=== PATIENT | male | born 1985 | race Caucasian/White ===

== ENCOUNTER 2024-06-02 14:41 | Emergency (ER) | payer BC ==
[2024-06-02] MEDS ORDERED: ONDANSETRON 4 MG/2 ML VIAL ONE (15:49)
[2024-06-02] MEDS ORDERED: KETOROLAC 30 MG/ML INJ ONE (15:49)
[2024-06-02] MEDS ORDERED: MORPHINE 4 MG/ML SYR ONE (15:50)
[2024-06-02] MEDS ORDERED: NA CHLORIDE 0.9% 1,000 ML ONE (15:50)
[2024-06-02] MEDS ORDERED: FAMOTIDINE 20 MG/2 ML VIAL IV ONE (15:50)
[2024-06-02 16:00] LABS: Absolute Basophils 0.1 K/uL (0-0.5); Absolute Eosinophils 0.2 K/uL (0-0.5); Absolute Lymphocytes (CBC) 2.5 K/uL (0.7-4.9); Absolute Monocytes 0.6 K/uL (0.1-1.3); Absolute Neutrophil 6.5 K/uL (1.8-8.0); Basophils % 1.2 % (0-1.3); Eosinophils % 1.6 % (0-4.4); Hematocrit 42.1 % (39.6-49.0); Hemoglobin 14.3 g/dL (13.6-17.9); Lymphocytes % 25.4 % (15.3-44.8); MCH 31.6 pg (27.0-35.0); Monocytes % 5.9 % (3.3-12.3); Neutrophils % 65.9 % (41.7-73.7); Platelets 228 thou/uL (152-406); RBC Red Blood Cell Count 4.52 M/uL (4.33-5.43); Red Cell Distribution Width 13.7 % (12.1-15.2)
[2024-06-02 16:01] LABS: Specific Gravity 1.023 (1.005-1.030); Urine Bilirubin NEGATIVE (Negative); Urine Blood Negative (Negative); Urine Clarity Clear (Clear); Urine Color Yellow (Yellow); Urine Glucose NEGATIVE (Negative); Urine Ketones NEGATIVE (Negative); Urine Microscopic Reflex YN NO UMIC; Urine Nitrite NEGATIVE (Negative); Urine Protein NEGATIVE (Negative); Urine Urobilinogen Normal (Normal); Urine pH 5.5 (5.0-7.0)
[2024-06-02 16:18] LABS: Albumin 3.9 g/dL (3.4-5.0); Anion Gap 10.5 mEq/L (5.0-15.0); Bilirubin Total 0.4 mg/dL (0.2-1.0); Globulin 4.1 g/dL (2.3-3.5); Potassium 3.5 mEq/L (3.5-5.1)
--- NOTE | 2024-06-02 17:27 | RAD REPORT ---
EXAMINATION: CTA CHEST PE CLINICAL INDICATION: Chest pain TECHNIQUE: 100 cc 370 Isovue administered intravenously. This examination was performed according to an angiographic protocol with 3D post-processing. This involves 3D reconstructions, MIPs, volume rendered images and/or shaded surface rendering. One or more of the following dose reduction techniqu es were used: Automated exposure control, adjustment of the mA and/or kV according to patient size, and/or iterative reconstruction. Unless otherwise specified, incidental findings do not require dedic ated imaging follow-up. [id number]. COMPARISON: No prior exam. FINDINGS: A pulmonary embolus is not seen. An aortic aneurysm not noted. No pleural effusion. No pericardial effusion. Lungs are clear. IMPRESSION: No evidence of a pulmonary embolism
--- NOTE | 2024-06-02 18:03 | RAD REPORT ---
EXAMINATION: CT ABDOMEN AND PELVIS WITH CONTRAST CLINICAL INDICATION: Abdominal pain TECHNIQUE: CT abdomen and pelvis was performed, after the administration of 100 cc Isovue-300.. Sagit blaine and coronal reconstructions were obtained. One or more of the following dose reduction techniques were used: Automated exposure control, adjustment of the mA and kV according to patient si ze, and iterative reconstruction. Unless otherwise specified, incidental findings do not require dedicated imaging follow-up. [id number]. Oral contrast was not given which limits evaluation of bowel and appendix. COMPARISON: .None FINDINGS: Mild fatty liver. The spleen, pancreas, adrenals and kidneys appear unremarkable No evidence of diverticulitis. Normal appendix Xoewl-[id number] bilateral hernias containing fat : IMPRESSION: Sisxy-ml-[id number] bilateral hernias
--- NOTE | 2024-06-02 19:15 | EDPHYS ---
Physician Documentation [facility] Name: Kelton Castanon Age: 38 yrs Sex: Male : 1985 Arrival Date: 06/02/2024 Time: 14:41 Bed 6 Private MD: ED Physician Reza De La Paz HPI: 06/02 16:14 This 38 yrs old Male presents to ER via Ambulatory with complaints of Flank ilia Pain. 16:14 The patient complains of pain in the right subscapular area and right mid back. The ilia pain radiates to the right subscapular area and right mid back. Onset: The symptoms/episode began/occurred 3 day(s) ago. Modifying factors: The symptoms are alleviated by nothing. the symptoms are aggravated by movement. Associated signs and symptoms: The patient has no apparent associated signs or symptoms. Severity of pain: At its worst the pain was moderate severe in the emergency department the pain has improved moderately. The patient has not experienced similar symptoms in the past. Historical: - Allergies: 15:11 No Known Allergies; hb - PMHx: 15:11 Hypertension; hb - PSHx: 15:11 Hernia Repair; hb - Immunization history:: Adult Immunizations up to date. - Infectious Disease History:: Denies. - Social history:: Smoking status: Patient reports the use of cigarette tobacco products, smokes one pack cigarettes per day. ROS: 16:21 Constitutional: Negative for fever, chills, and weight loss, Eyes: Negative for injury, ilia pain, redness, and discharge, ENT: Negative for injury, pain, and discharge, Neck: Negative for injury, pain, and swelling, Cardiovascular: Negative for chest pain, palpitations, and edema, Respiratory: Negative for shortness of breath, cough, wheezing, and pleuritic chest pain, Abdomen/GI: Negative for abdominal pain, nausea, vomiting, diarrhea, and constipation, : Negative for injury, bleeding, discharge, and swelling, MS/Extremity: Negative for injury and deformity, Skin: Negative for injury, rash, and discoloration, Neuro: Negative for headache, weakness, numbness, tingling, and seizure, Psych: Negative for depression, anxiety, suicide ideation, homicidal ideation, and hallucinations, Allergy/Immunology: Negative for hives, rash, and allergies, Endocrine: Negative for neck swelling, polydipsia, polyuria, polyphagia, and marked weight changes, Hematologic/Lymphatic: Negative for swollen nodes, abnormal bleeding, and unusual bruising, 16:21 Back: Positive for pain with movement, flank pain, on the left, 19:12 Cardiovascular: Negative for chest pain, ilia 19:12 Respiratory: Negative for shortness of breath, Exam: 16:21 Constitutional: This is a well developed, well nourished patient who is awake, alert, ilia and in no acute distress. Head/Face: Normocephalic, atraumatic. Eyes: Pupils equal round and reactive to light, extra-ocular motions intact. Lids and lashes normal. Conjunctiva and sclera are non-icteric and not injected. Cornea within normal limits. Periorbital areas with no swelling, redness, or edema. ENT: Nares patent. No nasal discharge, no septal abnormalities noted. Tympanic membranes are normal and external auditory canals are clear. Oropharynx with no redness, swelling, or masses, exudates, or evidence of obstruction, uvula midline. Mucous membranes moist. Neck: Trachea midline, no thyromegaly or masses palpated, and no cervical lymphadenopathy. Supple, full range of motion without nuchal rigidity, or vertebral point tenderness. No Meningismus. Chest/axilla: Normal chest wall appearance and motion. Nontender with no deformity. No lesions are appreciated. Cardiovascular: Regular rate and rhythm with a normal S1 and S2. No gallops, murmurs, or rubs. Normal PMI, no JVD. No pulse deficits. Respiratory: Lungs have equal breath sounds bilaterally, clear to auscultation and percussion. No rales, rhonchi or wheezes noted. No increased work of breathing, no retractions or nasal flaring. Abdomen/GI: Soft, non-tender, with normal bowel sounds. No distension or tympany. No guarding or rebound. No evidence of tenderness throughout. Back: No spinal tenderness. No costovertebral tenderness. Full range of motion. Male : Normal genitalia with no discharge or lesions. Skin: Warm, dry with normal turgor. Normal color with no rashes, no lesions, and no evidence of cellulitis. MS/ Extremity: Pulses equal, no cyanosis. Neurovascular intact. Full, normal range of motion., bilateral aka Neuro: Awake and alert, GCS 15, oriented to person, place, time, and situation. Cranial nerves II-XII grossly intact. Motor strength 5/5 in all extremities. Sensory grossly intact. Cerebellar exam normal. Normal gait. Psych: Awake, alert, with orientation to person, place and time. Behavior, mood, and affect are within normal limits. 16:21 ECG was reviewed by the Attending Physician. 19:12 Musculoskeletal/extremity: DVT Exam: No signs of deep vein thrombosis. no pain, no ilia swelling, no tenderness, negative Homans' sign noted on exam, no appreciated bluish discoloration, no erythema, no increased warmth, 19:12 Skin: no rash present. 19:17 ECG was reviewed by the Attending Physician. [facility] Vital Signs: 15:09 BP 162 / 105; Pulse 118; Resp 20; Temp 98.9(O); Pulse Ox 100% on R/A; Weight 127.01 kg; hb Height 5 ft. 9 in. ; Pain 7/10; 17:51 BP 129 / 73; Pulse 96; Resp 15; Pulse Ox 99% ; ko1 19:00 BP 123 / 79; Pulse 103; Resp 20; Pulse Ox 96% on R/A; al5 19:15 BP 133 / 88; Pulse 103; Resp 21; Pulse Ox 95% on R/A; al5 15:09 Body Mass Index 41.35 (127.01 kg, 175.26 cm) hb 15:09 Pain Scale: Adult hb MDM: 14:52 Medical Screening Exam initiated ilia 16:22 Antibiotic administration: Not indicated. Differential diagnosis: nephrolithiasis, ilia pyelonephritis, UTI, diverticulitis, pancreatitis, pneumonia, Pneumothorax pulmonary edema, Pulmonary Embolism reactive airway disease, Unstable Angina. Immunization status:. Data reviewed: vital signs, nurses notes, lab test result(s), EKG, radiologic studies, CT scan, plain films. Consideration of Admission/Observation Escalation of care including admission/observation considered. I considered the following discharge prescriptions or medication management in the emergency department Medications were administered in the Emergency Department. See MAR. Independent interpretation of the following test(s) in the Emergency Department EKG: See my EKG interpretation above. Test considered but Not performed: MRI: NO THORACIC MRI. Counseling: I had a detailed discussion with the patient and/or guardian regarding the historical points, exam findings, and any diagnostic results supporting the discharge/admit diagnosis, lab results, radiology results, the need for outpatient follow up, for definitive care, 06/02 14:54 Order name: CBC with Diff; Complete Time: 16:14 [facility] 06/02 14:54 Order name: CMP; Complete Time: 16:39 [facility] 06/02 14:54 Order name: Lipase; Complete Time: 16:39 [facility] 06/02 14:54 Order name: Urinalysis w/ reflexes; Complete Time: 16:14 [facility] 06/02 18:18 Order name: Troponin High Sensitivity; Complete Time: 19:11 [facility] 06/02 14:54 Order name: CT Abd/Pelvis - IV Contrast Only; Complete Time: 18:16 [facility] 06/02 15:49 Order name: CT Chest For PE Angio; Complete Time: 17:54 [facility] 06/02 16:14 Order name: INCENTIVE SPIROMETRY [facility] 06/02 18:18 Order name: INCENTIVE SPIROMETRY [facility] 06/02 14:54 Order name: IV Saline Lock; Complete Time: 15:53 [facility] 06/02 14:54 Order name: Labs collected and sent; Complete Time: 15:53 [facility] 06/02 18:17 Order name: EKG - Nurse/Tech; Complete Time: 18:55 [facility] EC:17 Rate is 73 beats/min. Rhythm is regular. QRS [place] is Normal. IA interval is normal. QRS ilia interval is normal. QT interval is normal. No Q waves. T waves are Normal. No ST changes noted. Clinical impression: NSR w/ Non-specific ST/T Changes and No evidence of ischemia. Interpreted by me. Reviewed by me. Administered Medications: 16:00 Drug: Famotidine IVP 20 mg IVP once; dilute with 10 mL 0.9% NaCl; give over 2 minutes kb3 Route: IVP; Site: left antecubital; 16:33 Follow up: Response: No adverse reaction; Pain is decreased kb3 16:00 Drug: Ondansetron IVP 4 mg IVP once; over 2 minutes Route: IVP; Site: left antecubital; kb3 16:33 Follow up: Response: No adverse reaction kb3 16:00 Drug: NS 0.9% IV 1000 ml IV at 1 bolus Per protocol; to be given as a bolus over 60 kb3 minutes Route: IV; Rate: 1 bolus; Site: left antecubital; 16:33 Follow up: Response: No adverse reaction; IV Status: Completed infusion; IV Intake: kb3 1000ml 16:34 Follow up: Response: No adverse reaction; Pain is decreased; IV Status: Completed kb3 infusion; IV Intake: 10ml 16:01 Drug: TORadol - Ketorolac IVP 15 mg IVP once Route: IVP; Site: left antecubital; kb3 16:33 Follow up: Response: No adverse reaction; Pain is decreased kb3 16:01 Drug: morphine IVP or IV 4 mg IVP once over 4 mins Route: IVP; Infused Over: 4 mins; kb3 Site: left antecubital; 16:16 Follow up: Response: No adverse reaction ko1 Disposition Summary: 06/02/24 19:14 Discharge Ordered Notes: Location: Home ilia Problem: new ilia Symptoms: have improved ilia Condition: Stable ilia Diagnosis - Strain of muscle and tendon of back wall of thorax ilia - Strain of muscle and tendon of front wall of thorax ilia - Bilateral inguinal hernia, without obstruction or gangrene, not specified as ilia recurrent - Hyperglycemia, unspecified ilia - Obesity, unspecified ilia - Unspecified symptoms and signs involving the musculoskeletal system ilia Followup: ilia - With: Private Physician - When: 2 - 3 days - Reason: Recheck today's complaints, Continuance of care, Re-evaluation by your physician Followup: ilia - With: Bharath Arboleda DO - When: 2 - 3 days - Reason: Recheck today's complaints, Re-evaluation by your physician Followup: ilia - With: Willy Paz MD - When: 2 - 3 days - Reason: Recheck today's complaints, Re-evaluation by your physician Discharge Instructions: - Discharge Summary Sheet ilia - Hernia, Adult ilia - Hyperglycemia ilia - Musculoskeletal Pain ilia - Obesity, Adult ilia - Inguinal Hernia, Adult, [id number] ilia - How to Use an Incentive Spirometer ilia Forms: - Medication Reconciliation Form ilia - Antibiotic Education ilia - Prescription Opioid Use ilia - Patient Portal Instructions [facility] - Leadership Thank You Letter [facility] Prescriptions: - Diclofenac Sodium 75 mg Oral Tablet Sustained Release - take 1 tablet ORAL route 2 times per day; 30 tablet; Refills: 0, Product ilia Selection Permitted - methocarbamol 750 mg Oral tablet - take 1 tablet ORAL route 4 times per day; 28 tablet; Refills: 0, Product ilia Selection Permitted Signatures: Dispatcher [employer] EDReza Carter MD MD cha Baxter, Heather, RN RN hb Yessy Cardoza RN RN kb3 Sabina Barnhart RN ko1
--- NOTE | 2024-06-02 19:15 | ER ---
Nurse's Notes [facility] Name: Kelton Castanon Age: 38 yrs Sex: Male : 1985 Arrival Date: 06/02/2024 Time: 14:41 Bed 6 Private MD: Diagnosis: Strain of muscle and tendon of back wall of thorax;Strain of muscle and tendon of front wall of thorax;Bilateral inguinal hernia, without obstruction or gangrene, not specified as recurrent;Hyperglycemia, unspecified;Obesity, unspecified;Unspecified symptoms and signs involving the musculoskeletal system Presentation: 06/02 15:09 Chief complaint: Left mid back pain that radiates to left flank x 2 weeks, coughed and hb felt a pop in the left flank and now pain is unbeatable. Recently recovered from the flu. Coronavirus screen: At this time, the client does not indicate any symptoms associated with coronavirus-19. Ebola Screen: No symptoms or risks identified at this time. Initial Sepsis Screen: Does the patient meet any 2 criteria? No. Patient's initial sepsis screen is negative. Does the patient have a suspected source of infection? No. Patient's initial sepsis screen is negative. Risk Assessment: Do you want to hurt yourself or someone else? Patient reports no desire to harm self or others. Onset of symptoms was May 19, 2024. 15:09 Method Of Arrival: Ambulatory hb 15:09 Acuity: PEPE 3 hb Historical: - Allergies: 15:11 No Known Allergies; hb - PMHx: 15:11 Hypertension; hb - PSHx: 15:11 Hernia Repair; hb - Immunization history:: Adult Immunizations up to date. - Infectious Disease History:: Denies. - Social history:: Smoking status: Patient reports the use of cigarette tobacco products, smokes one pack cigarettes per day. Screenin:30 [facility] ED Fall Risk Assessment (Adult) History of falling in the last 3 months, kb3 including since admission No falls in past 3 months (0 pts) Confusion or Disorientation No (0 pts) Intoxicated or Sedated No (0 pts) Impaired Gait No (0 pts) Mobility Assist Device Used No (0 pt) Altered Elimination No (0 pt) Score/Fall Risk Level 0 - 2 = Low Risk Oriented to surroundings, Maintained a safe environment. Abuse screen: Denies threats or abuse. Denies injuries from another. Nutritional screening: No deficits noted. Tuberculosis screening: No symptoms or risk factors identified. Assessment: 15:30 General: Appears uncomfortable, Behavior is calm, cooperative. Pain: Complains of pain kb3 in left subscapular area and left mid back Pain radiates to left low back Pain currently is 7 out of 10 on a pain scale. Vital Signs: 15:09 BP 162 / 105; Pulse 118; Resp 20; Temp 98.9(O); Pulse Ox 100% on R/A; Weight 127.01 kg; hb Height 5 ft. 9 in. ; Pain 7/10; 17:51 BP 129 / 73; Pulse 96; Resp 15; Pulse Ox 99% ; ko1 19:00 BP 123 / 79; Pulse 103; Resp 20; Pulse Ox 96% on R/A; al5 19:15 BP 133 / 88; Pulse 103; Resp 21; Pulse Ox 95% on R/A; al5 15:09 Body Mass Index 41.35 (127.01 kg, 175.26 cm) hb 15:09 Pain Scale: Adult hb ED Course: 14:42 Patient arrived in ED. im 14:52 Reza De La Paz MD is Attending Physician. ilia 15:11 Triage completed. hb 15:12 Arm band placed on. hb 15:19 Munir Rizvi, RN is Primary Nurse. bp 15:30 Patient has correct armband on for positive identification. Provided Education on: Plan kb3 of care. 15:30 No provider procedures requiring assistance completed. kb3 15:48 Initial lab(s) drawn, by me, sent to lab. Urine collected: clean catch specimen, clear. ty Inserted saline lock: 20 gauge in left antecubital area, using aseptic technique. Blood collected. Flushed with 10 mL NS. 15:53 CBC with Diff Sent. ty 15:53 CMP Sent. ty 15:53 Lipase Sent. ty 15:53 Urinalysis w/ reflexes Sent. ty 17:07 CT Abd/Pelvis - IV Contrast Only In Process Unspecified. EDMS 17:07 CT Chest For PE Angio In Process Unspecified. EDMS 18:21 INCENTIVE SPIROMETRY Sent. ko1 18:21 INCENTIVE SPIROMETRY Sent. ko1 18:32 Troponin High Sensitivity Sent. ko1 18:33 Repeat lab(s) drawn. by me, sent to lab. Incentive spirometer education provided by an ko1 Emergency Department nursing staff member. 19:14 Bharath Arboleda DO is Referral Physician. ilia 19:16 Willy Paz MD is Referral Physician. ilia 19:32 IV discontinued, intact, bleeding controlled, No redness/swelling at site. Pressure al5 dressing applied. Administered Medications: 16:00 Drug: Famotidine IVP 20 mg IVP once; dilute with 10 mL 0.9% NaCl; give over 2 minutes kb3 Route: IVP; Site: left antecubital; 16:33 Follow up: Response: No adverse reaction; Pain is decreased kb3 16:00 Drug: Ondansetron IVP 4 mg IVP once; over 2 minutes Route: IVP; Site: left antecubital; kb3 16:33 Follow up: Response: No adverse reaction kb3 16:00 Drug: NS 0.9% IV 1000 ml IV at 1 bolus Per protocol; to be given as a bolus over 60 kb3 minutes Route: IV; Rate: 1 bolus; Site: left antecubital; 16:33 Follow up: Response: No adverse reaction; IV Status: Completed infusion; IV Intake: kb3 1000ml 16:34 Follow up: Response: No adverse reaction; Pain is decreased; IV Status: Completed kb3 infusion; IV Intake: 10ml 16:01 Drug: TORadol - Ketorolac IVP 15 mg IVP once Route: IVP; Site: left antecubital; kb3 16:33 Follow up: Response: No adverse reaction; Pain is decreased kb3 16:01 Drug: morphine IVP or IV 4 mg IVP once over 4 mins Route: IVP; Infused Over: 4 mins; kb3 Site: left antecubital; 16:16 Follow up: Response: No adverse reaction [facility] Medication: 15:30 VIS not applicable for this client. kb3 Intake: 16:33 IV: 1000ml; Total: 1000ml. kb3 16:34 IV: 10ml; Total: 1010ml. kb3 Outcome: 19:14 Discharge ordered by . ilia 19:32 Discharged to home ambulatory, with family, al5 19:32 Condition: good 19:32 Discharge instructions given to patient, family, Instructed on discharge instructions, follow up and referral plans. medication usage, Demonstrated understanding of instructions, follow-up care, medications, Prescriptions given X 2, 19:32 Patient left the ED. al5 Signatures: Dispatcher [employer] EDMS Reza De La Paz MD MD cha Baxter, Heather, RN RN hb Munir Rizvi, RN RN Yessy Rosas RN RN kb3 Sabina Barnhart RN RN ko1 Anjelica Suárez Tylor ty Stephanie Wilkinson RN RN al5 Corrections: (The following items were deleted from the chart) 15:11 15:09 Chief complaint: Lift mid back pain that radiates to left flank x 2 weeks, hb coughed and felt a pop in the left flank and now pain is unbeatable. hb 15:53 15:52 Inserted saline lock: 20 gauge in left antecubital area, using aseptic technique. ty Blood collected. Flushed with 10 mL NS ty 15:53 15:52 Initial lab(s) drawn, by me, sent to lab. Urine collected: clean catch specimen, ty clear, ty 16:31 15:09 Chief complaint: Lift mid back pain that radiates to left flank x 2 weeks, hb coughed and felt a pop in the left flank and now pain is unbeatable. Recently recovered from the flu. hb 16:31 16:28 General: Appears uncomfortable, Behavior is calm, cooperative, kb3 kb3 16:31 16:28 Pain: Complains of pain in left subscapular area and left mid back Pain radiates kb3 to left low back Pain currently is 7 out of 10 on a pain scale. kb3
[2024-06-02 19:44] VITALS: TEMP 98.9
[2024-06-02 20:01] VITALS: BP 133/88; O2SAT 95
--- NOTE | 2024-06-03 14:39 | EKG ---
Test Date: 2024-06-02 Test Time: 18:47:18 Head Pastry Chef: AM MEASUREMENT RESULTS: Intervals: Rate: 105 MD: 146 QRSD: 86 QT: 322 QTc: 425 [place]: P: 47 MD: 146 QRS: 11 T: 28 INTERPRETIVE STATEMENTS: Sinus tachycardia Otherwise normal ECG Compared to ECG 11/12/2015 07:04:41 No significant changes Electronically Signed On 06-03-24 14:38:31 STEEL CHECK[employer] by Donis Lakhani
== END 2024-06-02 19:32 | disposition home or self-care (01) ==
LOC: ER 14:41
DX: S29.012A Strain of muscle and tendon of back wall of thorax, initial encounter (principal); S29.011A Strain of muscle and tendon of front wall of thorax, initial encounter; K40.20 Bilateral inguinal hernia, without obstruction or gangrene, not specified as recurrent; R29.91 Unspecified symptoms and signs involving the musculoskeletal system; R73.9 Hyperglycemia, unspecified; E66.9 Obesity, unspecified; I10 Essential (primary) hypertension; F17.210 Nicotine dependence, cigarettes, uncomplicated
CPT/HCPCS: 96361; 93005; 85025; 36415; 81003; 84484; 83690; 80053; 71275; 74177; 96375; 96374; 99284; Q9967; J2405; J7030